=== PATIENT | female | born 1985 | race Caucasian/White ===

== ENCOUNTER → 2017-02-08 | Outpatient (CLI) | payer MEDICAID ==
[~2017-02-08] MED LIST: LIDOCAINE HCL 1% PF 30 ML VIAL ONE; SULF1TAB47 PO
--- NOTE | 2017-02-08 14:47 | RADRPT ---
EXAM DATE/TIME: 02/08/2017 13:34 [place] COMPARISON: No previous studies available for comparison. INDICATIONS : Midline submantal lymph node. MEDICAL HISTORY : None. SURGICAL HISTORY : section. ENCOUNTER: Initial ACUITY: > 1 yr PAIN SCORE: 1/10 LOCATION: Midline submantal region. ORGAN: Bilateral submantal region. SPECIMENS: One core specimen(s) submitted for pathologic evaluation. DEVICE: 18 gauge Tem[place] needle Post procedure scanning reveals no hematoma or other complication. The possibility does exist that the tissue obtained will be non-diagnostic. If the sample is non-eris gnostic a repeat biopsy or surgical biopsy may need to be performed. TECHNIQUE: 1. Ultrasound guidance for needle biopsy. 2. Needle biopsy. The risks, benefits, and alternatives to ultrasound guided needle biopsy were explained to the patien t in detail including the risk of bleeding and infection. Written and verbal informed consent was ob tained. With the patient on the ultrasound table, images were obtained. Overlying skin was prepped and drape d in the usual sterile fashion and Lidocaine was utilized as a local anesthetic. A needle was advanced into the identified target and the number of specimens as above obtained and ferris bmitted for pathologic evaluation. The patient tolerated the procedure well and left the ultrasound suite in stable condition. CONCLUSION: Uncomplicated ultrasound guided 18 gauge core biopsy of enlarged submental node. Dante العراقي MD on February 08, 2017 at 14:44 Board Certified Radiologist. This report was verified electronically.
== END ==
LOC: HRAD 13:13 → EDSTATUS 13:30
PROVIDERS: ATTEND Family Medicine
DX: R22.1 Localized swelling, mass and lump, neck (principal)
CPT/HCPCS: 38505; 76942; 88305